=== PATIENT | male | born 1950 | race Caucasian/White ===

== ENCOUNTER 2017-10-13 02:36 | Inpatient (IN) | payer OTHER ==
[~2017-10-13] VITALS: Ht 170.2 cm; Wt 72.6 kg
[2017-10-13 02:44] VITALS: Ht 170.2 cm; Wt 72.6 kg
[2017-10-13 04:45] LABS: BASOPHIL % 0.2 % (0-2); PLATELET COUNT 203 x10^3mcL (130-400)
[2017-10-13 04:47] LABS: RED CELL DISTRIBUTION WIDTH 21.1 % (11.5-14.5)
[2017-10-13 04:50] LABS: CALCIUM 8.3 mg/dL (8.5-10.1); CARBON DIOXIDE 29.1 mmol/L (21-32); CHLORIDE SERUM 106 mmol/L (98-107); CREATININE SERUM 0.9 mg/dL (0.7-1.3); GFR1 > 60 mL/min; GLUCOSE SERUM 108 mg/dL (74-106); POTASSIUM SERUM 4.5 mmol/L (3.5-5.1); SODIUM SERUM 141 mmol/L (136-145)
[2017-10-13 04:57] LABS: ALBUMIN 3.7 g/dL (3.4-5.0); ALKALINE PHOSPHATASE 82 U/L (46-116); ALT/SGPT 33 U/L (16-63); AST/SGOT 26 U/L (15-37); BILIRUBIN TOTAL 0.7 mg/dL (0.20-1.00); TOTAL PROTEIN, SERUM 7.4 g/dL (6.4-8.2)
[2017-10-13] MEDS ORDERED: SYNTHROID0.15 MG PO (06:40)
[2017-10-13] MEDS ORDERED: XOPENEX HF0.045 MG/1 INH (07:44)
[2017-10-13] MEDS ORDERED: NASINH (07:44)
[2017-10-13 08:15] VITALS: BP 133/59
[2017-10-13 11:30] LABS: microscopic required? NO
[2017-10-13 12:05] LABS: urine erythrocyte NEGATIVE (NEGATIVE)
[2017-10-13 13:03] VITALS: BP 131/76; BP 131/768
[2017-10-13 15:06] LABS: CHOLESTEROL/HDL RATIO 2.9; MAGNESIUM 2.1 mg/dL (1.8-2.4)
[2017-10-13 16:03] VITALS: BP 131/76
[2017-10-13 16:53] VITALS: BP 138/70
[2017-10-13 20:30] VITALS: BP 120/60
[2017-10-14] VITALS (7 sets, daily range): BP systolic 83–124; BP diastolic 44–71
[2017-10-14 03:39] LABS: AMPHETAMINE QUAL UR NONE DETECTED (NEG <=1000)
[2017-10-14 06:43] LABS: CALCIUM 8.9 mg/dL (8.5-10.1); CARBON DIOXIDE 27.6 mmol/L (21-32); CHLORIDE SERUM 105 mmol/L (98-107); CREATININE SERUM 0.9 mg/dL (0.7-1.3); GFR1 > 60 mL/min; GLUCOSE SERUM 111 mg/dL (74-106); POTASSIUM SERUM 3.8 mmol/L (3.5-5.1); SODIUM SERUM 143 mmol/L (136-145)
[2017-10-14 08:14] LABS: BASOPHIL % 0.3 % (0-2); PLATELET COUNT 194 x10^3mcL (130-400)
[2017-10-14 08:16] LABS: RED CELL DISTRIBUTION WIDTH 20.4 % (11.5-14.5)
== END 2017-10-14 19:18 | disposition home or self-care (01) | DRG 194 ==
LOC: ED 02:36 → DU 07:03
PROVIDERS: Emergency Medicine; ADMIT Internal Medicine
DX: R09.1 Pleurisy (principal); I24.9 Acute ischemic heart disease, unspecified; M60.9 Myositis, unspecified; E03.9 Hypothyroidism, unspecified; J45.909 Unspecified asthma, uncomplicated
CPT/HCPCS: 83880; 85378; A9500; J2785; Q0092